=== PATIENT | female | born 1990 | race Caucasian/White ===

== ENCOUNTER 2024-01-19 14:19 | Outpatient (AMB) | payer BC, SELFPAY ==
--- NOTE | 2024-01-19 14:31 | MHC.OFFVIS ---
Vital Signs 01/19/24 14:33 Height 5 ft 8 in Weight 222 lb BMI 33.8 BP 112/61 Blood Pressure Location Lt brachial Position Sitting Pulse 81 Pulse Source Pulse Oximeter Pulse Oximetry (%) 97 Oxygen Delivery Method Room Air Intake Visit Reasons: RIGHT SHOULDER, NECK, BACK PAIN Allergies No Known Allergies Allergy (Verified 01/19/24 14:35) Medication List - Last Reconciled 01/19/24 by Adriana Lawson cetirizine (Zyrtec) 10 mg PO DAILY PRN desogestrel-ethinyl estradiol 0.15-0.03 mg (Apri) 1 tab PO DAILY omeprazole 10 mg PO DAILY tirzepatide (weight loss) (Zepbound) 5 mg subcut QWEEK topiramate 100 mg PO DAILY HPI Comments Details: Sindhu is a very pleasant 33-year-old female who presents to the office today for evaluation management of her chronic right neck and posterior shoulder pain. Patient has been suffering with this pain for approximately 1 year, she denies known trauma injury or fall. She has been participating in physical therapy for approximately 6 months, previously attempted physical therapy multiple times all without resolution of her pain. Massage therapy provides short-term relief but ultimately the pain will return. Patient will take ibuprofen as needed, but tries to avoid medications unless the pain is severe. Pain today is rated as a 5/10, constant Pain is exacerbated by working out and driving Physically active, enrolled it [employer]. Recently has not been able to participate as she can not utilize the right upper back to perform the necessary maneuvers. Pain does not radiate down the patient's arm. Denies numbness, tingling, burning or weakness of the right upper extremity In terms of muscle damage condition is described as burning, aching, tight Pain is negatively impacting patient's enjoyment of life, general activity, physical activity, work and driving. [facility] Medical History (Updated 01/19/24 @ 15:37 by Jackelin Malcolm, CHLOE, POTABLE WATER TREATMENT OPERATOR) Obesity L5 vertebral fracture Review of Systems Const All systems reviewed & are unremarkable except as noted in HPI and below Physical Exam Vital Signs: Last Vital Signs Pulse 81 01/19/24 14:33 BP 112/61 01/19/24 14:33 Pulse Ox 97 01/19/24 14:33 Oxygen Delivery Method Room Air 01/19/24 14:33 BMI result Body Mass Index 33.8 General: awake, alert, oriented. Answers questions appropriately. Fully engaged in examination. Skin: warm, dry, intact HEENT: Normocephalic. Hearing intact. Cardiac: External chest normal in appearance. Respiratory: No cough, audible wheezing or stridor. Abdomen: without gross distension. MS: No obvious swelling or deformities. Tender to palpation right middle trapezius. Palpable trigger point, palpable taut bands. Cervical range of motion intact. Bilateral upper extremity strength 5/5 Neurological: Oriented to person, place, time and situation. Thought process intact. No gait abnormalities appreciated. Psychiatric: Appropriate mood and affect. Good judgment and insight. Assessment & Plan Assessment & Plan (1) Trapezius muscle strain: Code(s): S46.819A - Strain of other muscles, fascia and tendons at shoulder and upper arm level, unspecified arm, initial encounter Category: Medical (2) Myofascial neck pain: Code(s): M54.2 - Cervicalgia Category: Medical (3) Cervical spondylosis: Code(s): M47.812 - Spondylosis without myelopathy or radiculopathy, cervical region Category: Medical Plan Sindhu is a very pleasant 33-year-old female who presented to the office today for evaluation management of her chronic right upper back, neck pain History, physical exam and provocative testing consistent with trapezius muscle strain, myofascial pain. TENS unit ordered, pamphlet provided. Patient instructed on use. Topical compound cream sent to the pharmacy. Patient instructed on use. New Rx: Methocarbamol 500 mg p.o. t.i.d. as needed. Patient advised on cautions for use. No driving while taking this medication. Do not take with any CLIENT SERVICES ANALYST depressants. Advised to continue with light exercises, avoid heavy use of shoulders are back. Recommend Light aerobic exercise including stationary bike, walking or swimming. All questions and concerns were answered, patient agrees with the plan. She will follow-up in 4-6 weeks, if pain persists will plan for trigger point injections. Medications: New cream base no.105 (bulk) (Base W301 cream) as directed; SIG: apply pea-sized amount 3-5 times daily to painful areas as needed ; Diclofenac 5%, Baclofen 5%, Cyclobenzaprine 2%, Gabapentin 6%, Bupivacaine 2%; 240 grams 3RF methocarbamol No driving while taking this medication. Do no take with alcohol or other CLIENT SERVICES ANALYST Depressants 500 mg PO TID PRN 30 tabs 1RF muscle spasm meloxicam Take with food. Do not take with any other nonsteroidal anti-inflammatory medications. 7.5 mg PO DAILY 14 tabs 0RF Coding Level of Care Code New Pt Level 4 (86209) Diagnoses Trapezius muscle strain S46.819A Myofascial neck pain M54.2 Cervical spondylosis M47.812
[2024-01-19 14:33] VITALS: BP 112/61; PULSE 81; O2SAT 97; BMI 33.8
== END 2024-01-19 15:40 | disposition home or self-care (01) ==
PROVIDERS: PCP Nurse Practitioner Primary Care; Visit Provider Registered Nurse Emergency
DX: S46.819A Strain of other muscles, fascia and tendons at shoulder and upper arm level, unspecified arm, initial encounter (principal); M54.2 Cervicalgia; M47.812 Spondylosis without myelopathy or radiculopathy, cervical region
CPT/HCPCS: 99204

== ENCOUNTER → 2024-01-19 14:19 | Outpatient (BNVA) | payer BC, SELFPAY | PROVIDERS: PCP Nurse Practitioner Primary Care; Visit Provider Registered Nurse Emergency ==